=== PATIENT | male | born 1935 | race Caucasian/White ===

== ENCOUNTER → 2017-01-27 | Outpatient (CLI) | payer OTHER, BC ==
[~2017-01-27] VITALS: Ht 182.9 cm; Wt 90.7 kg
[~2017-01-27] MED LIST: ACTOS 30 MG TAB30 M1 PO; ASPIR 8181 M1 PO; CARDIZEM CD180 MG PO; FLOMAX0.4 MG PO; HYDROCHLOROTHIA25 M2 PO; HYDROCODONE-AP1 EAC6 PO; LISINOPRIL5 MG PO; OMEPRAZOLE 20 M20 M1 PO; ZOCOR20 MG PO
--- NOTE | ~2017-01-27 | HPC ---
[facility] [place] [address] PAIN MANAGEMENT CONSULTATION Name: ELA SEO Room #: REG RENNY BergeronRaheem#: [id number] Admission: 01/27/17 Attend Phys: Mansoor Gunderson MD Discharge: Date of : 39 Report #: [id number] THIS REPORT FOR: //name// CC: Bon Gunderson DATE OF SERVICE: 01/27/2017 PRIMARY CARE PHYSICIAN: Bon Mckenzie M.D. CHIEF COMPLAINT: Pain down in the right leg with numbness, weakness and tenderness. HISTORY OF PRESENT ILLNESS: The patient is a 81-year-old gentleman who was then referred to the pain clinic for evaluation. He was helping his son move a chair. He felt pain in his back which radiated down into his right leg, causing severe pain and discomfort. Pain has been quite problematic. He is having difficulty engaging in activities of daily living because of this. He has not had problems like this before. He is not having any bowel or bladder dysfunction. He is not sure of anything that makes it better. He describes it is continuous, intermittent, shooting, cramping and throbbing and rates it as an 8/8. He is walking with a limp. He perceives weakness and tingling in the anterior portion of his right thigh. ALLERGIES: LATEX. MEDICATIONS: Hydrocodone 5/325 q. 4 hours p.r.n. pain, Actos 30 mg, omeprazole 20 mg, Flomax 0.4 mg at bedtime, Zestril 5 mg, hydrochlorothiazide 25 mg, Zocor 20 mg, aspirin 81 mg and diltiazem 180 mg. PAST MEDICAL HISTORY: Diabetes; hypertension; joint disease; prostate cancer; chronic kidney disease stage 2, mild; mitral regurg noted on echocardiogram and history of vertigo. PAST SURGICAL HISTORY: Knee replacement, left, 2002. SOCIAL HISTORY: He is retired. He is not working at this juncture. Denies the use of tobacco. Admits to about 3 alcoholic beverages per week. REVIEW OF SYSTEMS: A 14-point review of systems questionnaire indicates generally good health, some fatigue and weakness, chest pain/angina and shortness of breath when lying flat. Otherwise unremarkable. LABORATORY DATA: No [place] [address] PAIN MANAGEMENT CONSULTATION Name: ELA SEO Room #: REG [facility]#: [id number] Admission: 01/27/17 Attend Phys: Mansoor Gunderson MD Discharge: Date of : 39 Report #: [id number] PHYSICAL EXAMINATION: VITAL SIGNS: Blood pressure 122/61, pulse 90, respiratory rate 14 and room air saturation is 97%. Height 6 feet. Weight 90 kilograms. BMI 27. MUSCULOSKELETAL: The patient walks with an antalgic gait. He put his hand on his right thigh while walking. He notes pain and discomfort in this area. There is weakness in the right leg. Decreased sensation to pin prick, light touch. IMPRESSION: 1. Lumbar radiculopathy after carrying a chair with his son. 2. Diabetes. We discussed the possibility of elevated blood sugars as a result of epidural steroid injections. 3. Hypertension. 4. Hyperlipidemia, status post prostate cancer. 5. History of vertigo. RECOMMENDATIONS: We discussed the treatment options with the patient. Risks and benefits of an epidural steroid injection were discussed. Possible complications were reviewed and the patient elects to proceed. DESCRIPTION OF PROCEDURE: The patient was placed in the prone position. He could not remain in this position for more than about 2 minutes After a number of movements in a combination, the patient was placed in a sitting position. The fluoro machine was placed perpendicular to his waist. The L3-L4 interspace was sterilely prepped. After appropriate infiltration with 0.25% bupivacaine, a 17-gauge Tuohy with loss of resistance technique was used to gain access to the epidural space. There was no CSF, heme or paresthesia. A total of 80 mg Depo-Medrol and 40 mg triamcinolone were injected. The patient remained in the pain clinic for an appropriate amount of time. His pain score decreased from 8 to 0 at the time of discharge. He had stability of his legs, with no significant weakness. He will follow up in the future as needed. We would like to thank you for letting us participate in his care. We hope he continues to improve. By: [id number] Mansoor Gunderson MD /nt
[2017-01-27 09:02] VITALS: BP 122/61
== END ==
LOC: PAIN 07:06
DX: M54.16 Radiculopathy, lumbar region (principal); E78.5 Hyperlipidemia, unspecified; I12.9 Hypertensive chronic kidney disease with stage 1 through stage 4 chronic kidney disease, or unspecified chronic kidney disease; E11.22 Type 2 diabetes mellitus with diabetic chronic kidney disease; N18.2 Chronic kidney disease, stage 2 (mild); M25.9 Joint disorder, unspecified; Z85.46 Personal history of malignant neoplasm of prostate

== ENCOUNTER → 2017-02-10 | Outpatient (CLI) | payer OTHER, BC ==
[~2017-02-10] VITALS: Ht 182.9 cm; Wt 93.9 kg
[~2017-02-10] MED LIST changes: +HYDROCODON-ACE1 EAC5 PO
--- NOTE | ~2017-02-10 | HPC ---
[facility] [place] [address] PAIN MANAGEMENT CONSULTATION Name: ELA SEO Room #: REG RENNY BergeronRaheem#: [id number] Admission: 02/10/17 Attend Phys: Mansoor Gunderson MD Discharge: Date of : 39 Report #: [id number] THIS REPORT FOR: //name// CC: Bon Gunderson DATE OF SERVICE: 02/10/2017 CHIEF COMPLAINT: Lumbar radicular pain. FOLLOWUP HISTORY: The patient is a 81-year-old gentleman who has been seen in the pain clinic because of pain and discomfort, which is radiating down into his right leg. As you recall, he has had pain, which has been quite problematic. Attempts to undergo an MRI were . He was only able to stay in a tube about a minute. He continues to have pain and discomfort, which is quite debilitating. He is still unable to lie on his back at home. He has noted some improvement since we saw him last, but continues to have pain, which he rates as a 10 when it is bad and it is a 4 today. He is able to do and be a bit more comfortable. He has pain in the right front thigh. As you recall, he injured it while lifting and carrying a sofa downstairs with his son. PHYSICAL EXAMINATION: The patient walks with a somewhat antalgic gait, favoring his right side. He has pain and discomfort which he rates as a 4/10 today. Pain improves when he is sitting and is exacerbated with walking. Blood pressure 139/66, pulse 89, respiratory rate 16, room air saturation is 100, height 6 feet, weight 93 kilograms, BMI 28. The patient has pain and discomfort in the L3-L4 distribution of his right leg with anterior thigh weakness, numbness and tingling. IMPRESSION: 1. Lumbar radiculopathy in the L3-L4 distribution. This followed lifting and carrying a chair with his son about a month ago. 2. Hypertension. RECOMMENDATIONS: We discussed treatment options with the patient. Risks and benefits of another epidural steroid injection were discussed. Possible complications were reviewed. The patient elects to proceed with another injection. Risks and benefits had again been reviewed and the patient elects to proceed. PROCEDURE NOTE: The patient was taken to the fluoroscopy room. He was unable to lie flat on his stomach. He lay in the left lateral decubitus position. Fluoroscopy was used to identify the L3-L4 interspace. This area had been sterilely prepped with Betadine and infiltrated with 0.25% bupivacaine. Total of 80 mg Depo-Medrol, 40 mg triamcinolone and 2 mL of 0.25% bupivacaine was [address] [address] PAIN MANAGEMENT CONSULTATION Name: ELA SEO Room #: REG RENNY Gaspar#: [id number] Admission: 02/10/17 Attend Phys: Mansoor Gunderson MD Discharge: Date of : 39 Report #: [id number] injected. The patient tolerated the procedure well. There were no complications. He will follow up in the future as needed. A total of 11 seconds fluoroscopy time was used. By: [id number] Mansoor Gunderson MD /nt
[2017-02-10 08:03] VITALS: BP 139/66
== END ==
LOC: PAIN 07:11
DX: M54.16 Radiculopathy, lumbar region (principal); I10 Essential (primary) hypertension

== ENCOUNTER → 2017-03-15 | Outpatient (CLI) | payer OTHER, BC ==
[~2017-03-15] VITALS: Ht 182.9 cm; Wt 91.8 kg
[~2017-03-15] MED LIST changes: +MOBIC7.5 MG PO
--- NOTE | ~2017-03-15 | HPC ---
[facility] [address] [address] PAIN MANAGEMENT CONSULTATION Name: ELA SEO Room #: REG RENNY BergeronRaheem#: [id number] Admission: 03/15/17 Attend Phys: Mansoor Gunderson MD Discharge: Date of : 39 Report #: [id number] THIS REPORT FOR: //name// CC: Bon Gunderson DATE OF SERVICE: 03/15/2017 FOLLOWUP COMPLAINT: The pain has improved overall, but I am still having pain and I cannot lay on my stomach well. FOLLOWUP HISTORY: The patient is a 81-year-old gentleman who was seen in the pain clinic. As you recall, he was helping his son move a chair/couch. He was carrying to downstairs. He noticed that the pain had occurred after this activity. He is having some pain and discomfort in the L3-L4 area of his anterior thigh. He has undergone 2 epidural steroid injections and has noted improvement. He is still having some discomfort. He rates his pain as a 4 today. Sometimes, it continues to rise to a level of 10 when he walks and becomes more active. He feels that the past injections have improved his pain by greater than 50% and would like to proceed with another injection at this juncture. PHYSICAL EXAMINATION: Blood pressure 110/63, pulse 84, respiratory rate 16, room air saturation is 97. Height 6 feet, weight 91 kilograms, BMI is 27. The patient has not fallen since we saw him last. He does have vertigo. He has fallen in the last 3 months. IMPRESSION: 1. Lumbar radiculopathy at the L3-L4 distribution involving the right leg. This followed lifting and carrying a sofa with his son about 2 months ago. 2. Hypertension. RECOMMENDATIONS: We discussed treatment options with the patient. Risks and benefits of an epidural steroid injection were again reviewed. Possible complications were discussed. The patient elects to proceed. PROCEDURE NOTE: The patient was placed in the prone position. Fluoroscopy was used to identify the L3-L4 interspace. This area had been sterilely prepped with Betadine and infiltrated with 0.25% bupivacaine. Total of 80 mg Depo-Medrol, 40 mg triamcinolone and 2 mL of 0.25% bupivacaine was injected. The patient tolerated the procedure well. There were no complications. We [address] [address] PAIN MANAGEMENT CONSULTATION Name: SEOELA Room #: REG RENNY Gaspar#: [id number] Admission: 03/15/17 Attend Phys: Mansoor Gunderson MD Discharge: Date of : 37 Report #: [id number] would like to thank you for letting us participate in his care. We hope he continues to improve. By: [id number] Mansoor Gunderson MD /nt
[2017-03-15 11:16] VITALS: BP 110/63
== END | disposition home or self-care (01) ==
LOC: PAIN 06:32
DX: M54.16 Radiculopathy, lumbar region (principal); I10 Essential (primary) hypertension; X50.0XXD Overexertion from strenuous movement or load, subsequent encounter